=== PATIENT | female | born 1995 | race Caucasian/White ===

== ENCOUNTER 2019-11-19 11:39 | Emergency (ER) | payer OTHER, SELFPAY ==
[2019-11-19 12:05] VITALS: BP 129/83; PULSE 75; RESP 14; TEMP 36.6; O2SAT 100
--- NOTE | 2019-11-19 12:44 | ED.GENADULT ---
HPI - General Adult General Chief complaint: Extremity Injury, Upper Stated complaint: pain in shoulders/pain on left side Time Seen by Provider: 11/19/19 12:44 Source: patient and RN notes reviewed Mode of arrival: ambulatory Limitations: no limitations History of Present Illness HPI narrative: This is a 24 years old female presented office for evaluation of bilateral shoulder and arm pain for 6 months. Symptoms began with left shoulder off-and-on for 6 months and getting worse for the past 2 weeks. Left shoulder is more painful than right shoulder. Left shoulder with constant pain with Intermittent shooting pain to her hands and fingers. She is right-hand dominant. Denies injury or trauma to her neck or her shoulders. She admits to heavy lifting at work at times up to like 30 pounds.She does not have a doctor. Related Data Allergies Allergy/AdvReac Type Severity Reaction Status Date / Time adhesive tape Allergy Intermediate SKIN DIES Verified 11/19/19 12:13 Review of Systems Review of Systems: Narrative: CONSTITUTIONAL: Denies fever, feeling ill, weight loose or night sweat EYES: Denies visual changes ENT: Denies congestion CARDIOVASCULAR: Denies chest pain RESPIRATORY: Denies cough GASTROINTESTINAL: Denies abdominal pain, nausea, vomiting GENITOURINARY: Denies urinary symptoms or discharge SKIN: Denies rash MUSCULOSKELETAL: Reports bilateral shoulder pain NEUROLOGIC: Denies numbness, or focal weakness. PMFSH Past Medical History Medical History (Updated 11/19/19 @ 13:03 by FRANCISCO Bonilla) Anxiety and depression Bipolar 1 disorder Surgical History Surgical History (Updated 11/19/19 @ 12:47 by FRANCISCO Bonilla) History of appendectomy Hx of tonsillectomy Social History Social History (Updated 11/19/19 @ 13:09 by FRANCISCO Bonilla) Smoking status: Never smoker Comments At time of signature, I agree with nursing past medical, surgical, social and family history. There is no relevant family history pertinent to the presenting complaint. Exam Narrative: Exam Narrative: GENERAL: This is a well-nourished, well-developed patient, in no apparent distress. NECK: Neck supple, non-tender without lymphadenopathy, masses or thyromegaly. Negative Spurling test CARDIOVASCULAR: Regular rate and rhythm without murmurs, gallops, or rubs. RESPIRATORY: Clear to auscultation. Breath sounds equal bilaterally. No wheezes, rales, or rhonchi. SKIN: warm, intact with no suspicious lesions or rash, good texture and turgor. NEURO: awake, alert, and oriented to person, place and time. There were no obvious focal neurologic abnormalities. Steady gait EXTREMITIES:The L shoulder is without obvious asymmetry or deformity when comparing to R shoulder. No surface trauma, ecchymosis, crepitus. No bony deformity of the humerus head. No erythema, warmth, swelling to palpate. Nontender to palpations of the bicipital groove or soft tissue. Nontender to palpation of of the muscles of the sternocleidomastoid, pectoris, biceps/triceps, deltoid, trapezius, rhomboid, latissimus dorsi is, or rotator cuff. Negative empty can and arm drop test. No axillary tenderness or lymphadenopathy. Normal sensation over the deltoid and ability to flex the arm at the elbow indicated distal motor is a normal vascular status is intact. Cap refills brisk [place] Coma Scale Eye Opening: Spontaneous 4 [place] Coma Scale Motor: Obeys Commands 6 [place] Coma Scale Verbal: Oriented 5 Course Vital Signs Vital signs: Vital Signs Temperature 97.9 F 11/19/19 12:05 Pulse Rate 75 11/19/19 12:05 Respiratory Rate 14 11/19/19 12:05 Blood Pressure 129/83 11/19/19 12:05 Pulse Oximetry 100 11/19/19 12:05 Temperature 97.9 F 11/19/19 12:05 Pulse Rate 75 11/19/19 12:05 Respiratory Rate 14 11/19/19 12:05 Blood Pressure 129/83 11/19/19 12:05 Pulse Oximetry 100 11/19/19 12:05 Medical Decision Making [facility] Narrative Medical
== END 2019-11-19 13:07 | disposition home or self-care (01) ==
PROVIDERS: Emergency Provider Nurse Practitioner
DX: M25.512 Pain in left shoulder (principal); M25.511 Pain in right shoulder
CPT/HCPCS: 99213; G0463

== ENCOUNTER 2021-04-18 09:35 | Emergency (ER) | payer OTHER, SELFPAY ==
[2021-04-18 09:42] VITALS: BP 124/75; PULSE 85; RESP 14; TEMP 37.2; O2SAT 99
--- NOTE | 2021-04-18 10:29 | ED.SKABFB ---
HPI - Skin/Abscess/Foreign Bdy General Chief complaint: Skin/Abscess/Foreign Body Stated complaint: bumps all over body Time Seen by Provider: 04/18/21 10:30 Source: patient, RN notes reviewed and old records reviewed Mode of arrival: ambulatory Limitations: no limitations History of Present Illness HPI narrative: 26 year old female who presents to [facility] care with complaints of rash red blotchy areas which are itchy that initially started on her feet and ankle. Patient states that her rash has been spreading for the past 24 hours with present treatment of Benadryl and Benadryl cream not helping alleviate the itching or spreading of rash. Patient states that she has not been in the [place] or working on her yard, denies anyone else in household having rash, denies any new medications, foods, soaps, detergents or lotions complaint: rash Onset (ago): day(s) (since Monday 5 days with increase in past 24 hours) Tetanus up to date: yes Location: generalized Quality: pruritic Context: none Associated symptoms: denies other symptoms Treatments prior to arrival: Benadryl and other (Benadryl ointment or cream) Related Data Home Medications Medication Instructions Recorded Confirmed sertraline [Zoloft] 50 mg PO DAILY 04/18/21 04/18/21 Allergies Allergy/AdvReac Type Severity Reaction Status Date / Time adhesive tape Allergy Intermediate SKIN DIES Verified 04/18/21 10:17 Review of Systems Review of Systems: Narrative: CONSTITUTIONAL: Denies fever, chills, or sweats. EYES: Denies visual changes, redness, or discharge. ENT: Denies rhinorrhea, congestion, sore throat, or otalgia. CARDIOVASCULAR: Denies chest pain, palpitations, or edema. RESPIRATORY: Denies cough or dyspnea. GASTROINTESTINAL: Denies abdominal pain, nausea, vomiting, or diarrhea. GENITOURINARY: Denies dysuria or hematuria. SKIN: scattered rash noted to feet, legs arms neck and lower back which is pruritic MUSCULOSKELETAL: Denies back pain, joint pain, or myalgia. NEUROLOGIC: Denies headache, numbness, or weakness. PSYCHIATRIC: Positive history of anxiety or depression. All systems reviewed & are unremarkable except as noted in HPI and below PMFSH Past Medical History Medical History Anxiety and depression Bipolar 1 disorder Surgical History Surgical History History of appendectomy Hx of tonsillectomy Family History Family History (Updated 04/18/21 @ 15:58 by Yumiko Sharp NP) Father Hypertension Grandparent Diabetes mellitus Heart disease Social History Social History (Updated 04/18/21 @ 15:58 by Yumiko Sharp NP) Smoking status: Never smoker Alcohol intake: current Alcohol use details: social Substance use: current Substance use type: marijuana Living arrangements: with family Gender identity (if verbalized by the patient): Female Comments At time of signature, agree with nursing past medical, surgical, social and family history. There is no relevant family history pertinent to the presenting complaint Exam Narrative: Exam Narrative: GENERAL: Well-appearing, well-nourished, and in no acute distress. HEAD: Normocephalic, atraumatic. EYES: PERRLA and EOMI. ENT: Nares clear, no rhinorrhea or epistaxis. Mucous membranes moist.TM's normal with good light reflex, throat pink with no swelling or redness uvula midline, no tonsils present, denies any dysphagia NECK: Supple.no lymphadenopathy CHEST: Clear to auscultation. No respiratory distress.SAO2 99% on room air denies any dyspnea HEART: Regular rate and rhythm. No murmur heard. Normal peripheral pulses. ABDOMEN: Soft, nontender, nondistended, normal active bowel sounds. EXTREMITIES: Normal range of motion. No edema. SKIN: Warm, dry, scattered papular rash noted on feet, ankles, upper and lower leg, arms neck and lower back with is pruritic, no linear formation n
== END 2021-04-18 10:52 | disposition home or self-care (01) ==
PROVIDERS: Emergency Provider Registered Nurse; PCP Internal Medicine
DX: L25.9 Unspecified contact dermatitis, unspecified cause (principal); F41.9 Anxiety disorder, unspecified; F32.9 Major depressive disorder, single episode, unspecified
CPT/HCPCS: 99213; G0463

== ENCOUNTER 2021-04-20 10:23 | Emergency (ER) | payer OTHER, SELFPAY ==
[2021-04-20 10:29] VITALS: BP 144/80; PULSE 85; RESP 18; TEMP 36.6; O2SAT 99
[2021-04-20 10:39] VITALS: BP 144/80; PULSE 85; RESP 18; TEMP 36.6; O2SAT 99
--- NOTE | 2021-04-20 10:57 | ED.SKABFB ---
HPI - Skin/Abscess/Foreign Bdy General Chief complaint: Skin/Abscess/Foreign Body Stated complaint: Rash on body Time Seen by Provider: 04/20/21 10:33 Source: patient, RN notes reviewed and old records reviewed Mode of arrival: ambulatory Limitations: no limitations History of Present Illness HPI narrative: 26 year old female who presents to [facility] care with continued rash generalized to body. Patient was seen on the 4th and treated for contact dermatitis and has been taking steroid, Pepcid and using triamcinolone cream to rash. Patient states that areas have improved some but she has noted some new areas on her right lower leg and thigh. Patient denies increase pruritus at night. Rash on forearms has improved in amount but now some lesions are circular with inner clearing typical of ringworm. Child also has rash now that is similar to her rash upon first presentation. MD complaint: rash Tetanus up to date: yes Related Data Home Medications Medication Instructions Recorded Confirmed sertraline [Zoloft] 50 mg PO DAILY 04/18/21 04/20/21 Allergies Allergy/AdvReac Type Severity Reaction Status Date / Time adhesive tape Allergy Intermediate SKIN DIES Verified 04/20/21 10:38 Review of Systems Review of Systems: Narrative: CONSTITUTIONAL: Denies fever, chills, or sweats. EYES: Denies visual changes, redness, or discharge. ENT: Denies rhinorrhea, congestion, sore throat, or otalgia. CARDIOVASCULAR: Denies chest pain, palpitations, or edema. RESPIRATORY: Denies cough or dyspnea. GASTROINTESTINAL: Denies abdominal pain, nausea, vomiting, or diarrhea. GENITOURINARY: Denies dysuria or hematuria. SKIN: Positive rash and itching generalized with some circular lesions noted. MUSCULOSKELETAL: Denies back pain, joint pain, or myalgia. NEUROLOGIC: Denies headache, numbness, or weakness. PSYCHIATRIC: Positive anxiety or depression. All systems reviewed & are unremarkable except as noted in HPI and below PMFSH Past Medical History Medical History Anxiety and depression Bipolar 1 disorder Surgical History Surgical History History of appendectomy Hx of tonsillectomy Family History Family History (Updated 04/18/21 @ 15:58 by Yumiko Sharp NP) Father Hypertension Grandparent Diabetes mellitus Heart disease Social History Social History (Updated 04/18/21 @ 15:58 by Yumiko Sharp NP) Smoking status: Never smoker Alcohol intake: current Alcohol use details: social Substance use: current Substance use type: marijuana Gender identity (if verbalized by the patient): Female Comments at time of signature agree with nursing documentation of past medical, surgical , social and family history, There is no relevant past family history pertinent to presenting complaint Exam Narrative: Exam Narrative: GENERAL: Well-appearing, well-nourished, and in no acute distress. HEAD: Normocephalic, atraumatic. EYES: PERRLA and EOMI. ENT: Nares clear, no rhinorrhea or epistaxis. Mucous membranes moist. NECK: Supple. no lymphadenopathy CHEST: Clear to auscultation. No respiratory distress.SAO2 99% on room air HEART: Regular rate and rhythm. No murmur heard. Normal peripheral pulses. ABDOMEN: Soft, nontender, nondistended, normal active bowel sounds. EXTREMITIES: Normal range of motion. No edema. SKIN: Warm, dry, positive for increase rash to upper leg which is macular papular scattered but rash on forearms noted now to be circular with inner clearing typical of ringworm. which is pruritic. NEURO: No focal deficits. Alert and oriented x3. Course Vital Signs Vital signs: Vital Signs Temperature 36.6 C 04/20/21 10:29 Pulse Rate 85 04/20/21 10:29 Respiratory Rate 18 04/20/21 10:29 Blood Pressure 144/80 H 04/20/21 10:29 Pulse Oximetry 99 04/20/21 10:29 Temperature 36.6 C 04/20/21 10:39 Pu
== END 2021-04-20 11:07 | disposition home or self-care (01) ==
PROVIDERS: Emergency Provider Registered Nurse
DX: B35.9 Dermatophytosis, unspecified (principal); F41.9 Anxiety disorder, unspecified; F32.9 Major depressive disorder, single episode, unspecified
CPT/HCPCS: 99213; G0463

== ENCOUNTER 2021-10-18 19:28 | Emergency (ER) | payer OTHER, SELFPAY ==
--- NOTE | ~2021-10-18 | XR_ITS ---
EXAMINATION: XR ankle LT min 3V EXAM DATE: 10/18/2021 19:46 INDICATION: Possible Inversion Injury When Squatting,Lateral Pain . Initial encounter. TECHNIQUE: Left ankle frontal, lateral and oblique projections obtained and reviewed. There is no pr ior study for comparison. FINDINGS: The left ankle mortise appears intact. There are no acute fractures or dislocations ident ified. There is no subcutaneous gas. The soft tissue is unremarkable. There are no radiopaque for eign bodies. IMPRESSION: No acute osseous findings. Reviewed, dictated and finalized at location A. E IMPRESSION: No acute osseous findings.
[2021-10-18 19:34] VITALS: BP 139/82; PULSE 101; RESP 16; TEMP 37.2; O2SAT 98
--- NOTE | 2021-10-18 19:48 | ED.LOWEXIN ---
HPI - Extremity Injury (Lower) General Chief Complaint: Extremity Injury, Lower Stated Complaint: left ankle pain Time Seen by Provider: 10/18/21 19:48 Source: patient History of Present Illness HPI Narrative: PATIENT PRESENTS WITH LEFT ANKLE PAIN. PATIENT ROLLED ANKLE A FEW DAYS AGO. NO DEFORMITY NO BRUISING NO OPEN AREAS. complaint: ankle injury Related Data Home Medications Medication Instructions Recorded Confirmed No Home Medications 10/18/21 10/18/21 Allergies Allergy/AdvReac Type Severity Reaction Status Date / Time adhesive tape Allergy Intermediate SKIN DIES Verified 10/18/21 19:40 Review of Systems Review of Systems: CONSTITUTIONAL: Denies fever, chills, or sweats. EYES: Denies visual changes, redness, or discharge. ENT: Denies rhinorrhea, congestion, sore throat, or otalgia. CARDIOVASCULAR: Denies chest pain, palpitations, or edema. RESPIRATORY: Denies cough or dyspnea. GASTROINTESTINAL: Denies abdominal pain, nausea, vomiting, or diarrhea. GENITOURINARY: Denies dysuria or hematuria. SKIN: Denies rash or itching. MUSCULOSKELETAL: Denies back pain, joint pain, or myalgia. NEUROLOGIC: Denies headache, numbness, or weakness. PSYCHIATRIC: Denies anxiety or depression. Allergic/Immunologic: Comments: At time of signature, agree with nursing past medical, surgical, social and family history. There is no relevant family history pertinent to the presenting complaint PMFSH Past Medical History Medical History Anxiety and depression Bipolar 1 disorder Surgical History Surgical History History of appendectomy Hx of tonsillectomy Family History Family History (Updated 04/18/21 @ 15:58 by Yumiko Sharp NP) Father Hypertension Grandparent Diabetes mellitus Heart disease Social History Social History (Updated 04/18/21 @ 15:58 by Yumiko Sharp NP) Smoking status: Never smoker Alcohol intake: current Alcohol use details: social Substance use: current Substance use type: marijuana Gender identity (if verbalized by the patient): Female Exam Narrative: GENERAL: Well-appearing, well-nourished, and in no acute distress. HEAD: Normocephalic, atraumatic. EYES: PERRLA and EOMI. ENT: Nares clear, no rhinorrhea or epistaxis. Mucous membranes moist. NECK: Supple. CHEST: Clear to auscultation. No respiratory distress. HEART: Regular rate and rhythm. No murmur heard. Normal peripheral pulses. ABDOMEN: Soft, nontender, nondistended, normal active bowel sounds. EXTREMITIES: Normal range of motion. No edema. ANKLE EXAM SKIN INTACT. NORMAL DP PULSE, NORMAL CAP REFILL. NORMAL SENSATION.PAIN TO LATERAL SIDE OF ANKLE SKIN: Warm, dry, no rash. NEURO: No focal deficits. Alert and oriented x3. [place] Coma Scale Eye Opening: Spontaneous 4 [place] Coma Scale Motor: Obeys Commands 6 [place] Coma Scale Verbal: Oriented 5 [place] Coma Scale Total 15 Course Course Level of Care: Express Care Visit Vital Signs Vital signs: Vital Signs Temperature 37.2 C 10/18/21 19:34 Pulse Rate 101 H 10/18/21 19:34 Respiratory Rate 16 10/18/21 19:34 Blood Pressure 139/82 10/18/21 19:34 Pulse Oximetry 98 10/18/21 19:34 Temperature 37.2 C 10/18/21 19:34 Pulse Rate 101 H 10/18/21 19:34 Respiratory Rate 16 10/18/21 19:34 Blood Pressure 139/82 10/18/21 19:34 Pulse Oximetry 98 10/18/21 19:34 Addressed elevated BP today. Today's blood pressure higher than recommended range. Discussed importance of follow -up with PCP and possible nipple maker effects/cardiovascular events related to HTN. Currently patient denies headache, dizziness, vision changes, CP or shortness of breath. DISCUSSED WITH PATIENT, X-RAY FINDINGS AND THAT X-RAYS WERE NEGATIVE FOR FRACTURE OR DISLOCATIONS. X-RAYS CANNOT RULE OUT TENDON, LIGAMENT, OR SOFT TISSUE STRUCTURE INJURIES AND IF SYMP
== END 2021-10-18 20:06 | disposition home or self-care (01) ==
PROVIDERS: Emergency Provider Nurse Practitioner Family; PCP Internal Medicine
DX: S93.402A Sprain of unspecified ligament of left ankle, initial encounter (principal); S96.912A Strain of unspecified muscle and tendon at ankle and foot level, left foot, initial encounter; X50.9XXA Other and unspecified overexertion or strenuous movements or postures, initial encounter
CPT/HCPCS: 73610; 99213; G0463

== ENCOUNTER 2023-11-08 09:54 | Emergency (ER) | payer OTHER, SELFPAY ==
--- NOTE | ~2023-11-08 | XR_ITS ---
EXAMINATION: XR chest 2V 11/08/2023 10:24 INDICATION: Wheezing and cough PROCEDURE: 2 view chest COMPARISON: No prior studies for comparison. FINDINGS: The lungs are clear. The cardiomediastinal silhouette is within normal limits. There are no pleural effusions. There is no pneumothorax suspected. IMPRESSION: 1: NO ACUTE CARDIOPULMONARY DISEASE. Reviewed, dictated and finalized at location B. R [employer]
[2023-11-08 10:00] VITALS: BP 121/73; PULSE 89; RESP 16; TEMP 36.9; O2SAT 100
--- NOTE | 2023-11-08 10:05 | ED.URI ---
HPI - URI/Sore Throat General Chief Complaint: Upper Respiratory Infection Stated Complaint: Wheezing in chest Time Seen by Provider: 11/08/23 10:05 Source: patient Mode of arrival: ambulatory Limitations: no limitations History of Present Illness HPI Narrative: 28 yo F presents with c/o cough, chest congestion, bodyaches and fatigue for 5 days. Has felt feverish but no fever. Reports SOB with exertion today. Concerned for pneumonia. All systems reviewed and negative except as noted above. Related Data Home Medications Medication Instructions Recorded Confirmed clonidine HCl 0.1 mg 0.1 mg PO Q12H 11/08/23 11/08/23 tablet,extended release,12 hr hydroxyzine pamoate 50 mg capsule 50 mg PO QHS 11/08/23 11/08/23 prazosin 1 mg capsule 1 mg PO QHS 11/08/23 11/08/23 Allergies Allergy/AdvReac Type Severity Reaction Status Date / Time adhesive tape Allergy Intermediate SKIN DIES Verified 11/08/23 10:17 Review of Systems Review of Systems: CONSTITUTIONAL: Denies fever, chills, or sweats. Reports fatigue. EYES: Denies visual changes, redness, or discharge. ENT: Denies rhinorrhea, congestion, sore throat, or otalgia. CARDIOVASCULAR: Denies chest pain, palpitations, or edema. RESPIRATORY: Reports cough and dyspnea with exertion. GASTROINTESTINAL: Denies abdominal pain, nausea, vomiting, or diarrhea. GENITOURINARY: Denies dysuria or hematuria. SKIN: Denies rash or itching. MUSCULOSKELETAL: Denies back pain, joint pain. Reports myalgia. NEUROLOGIC: Denies headache, numbness, or weakness. PSYCHIATRIC: Denies anxiety or depression. All other systems reviewed are negative, except as documented in HPI. [facility] Past Medical History Medical History Anxiety and depression Bipolar 1 disorder Surgical History Surgical History History of appendectomy Hx of tonsillectomy Family History Family History (Updated 04/18/21 @ 15:58 by Yumiko Sharp NP) Father Hypertension Grandparent Diabetes mellitus Heart disease Social History Social History (Updated 04/18/21 @ 15:58 by Yumiko Sharp NP) Smoking status: Never smoker Alcohol intake: current Alcohol use details: social Substance use: current Substance use type: marijuana Living arrangements: with family Gender identity (if verbalized by the patient): Female Comments At time of signature, agree with nursing past medical, surgical, social and family history. There is no relevant family history pertinent to the presenting complaint. Exam Narrative: GENERAL: This is a well-nourished, well-developed patient, in no apparent distress. HEAD: normocephalic, atraumatic. EYES: PERRL. Sclera clear/white. Vision is grossly intact. EARS: External ears normal, auditory canals clear and without drainage, TMs normal without perforation. Hearing grossly intact. NOSE: External nose normal with no obvious nasal discharge, nares without redness, no rhinorrhea. THROAT: Mucous membranes moist, posterior pharynx clear. NECK: Neck supple, non-tender without lymphadenopathy, masses or thyromegaly. CARDIOVASCULAR: Regular rate and rhythm without murmurs, gallops, or rubs. RESPIRATORY: Mildly coarse lung sounds throughout all lung mantilla. Breath sounds equal bilaterally. No wheezes, rales, or rhonchi. SKIN: warm, Dry, intact with no suspicious lesions or rash, good texture and turgor. NEURO: awake, alert, and oriented to person, place and time. There were no obvious focal neurologic abnormalities. EXTREMITIES: No joint tenderness, effusion, or edema noted. Course Course Level of Care: Express Care Visit Vital Signs Vital signs: Vital Signs Temperature 36.9 C 11/08/23 10:00 Pulse Rate 89 11/08/23 10:00 Respiratory Rate 16 11/08/23 10:00 Blood Pressure 121/73 11/08/23 10:00 Pulse Oximetry 100 11/08/23 10:00 Oxygen [place]
== END 2023-11-08 10:40 | disposition home or self-care (01) ==
PROVIDERS: Emergency Provider Nurse Practitioner Family
DX: J20.9 Acute bronchitis, unspecified (principal); F12.90 Cannabis use, unspecified, uncomplicated; F41.9 Anxiety disorder, unspecified
CPT/HCPCS: 71046; 99213; G0463

== ENCOUNTER 2023-11-23 09:20 | Emergency (ER) | payer OTHER, SELFPAY ==
--- NOTE | ~2023-11-23 | XR_ITS ---
EXAMINATION: XR chest 2V DATE: 11/23/2023 10:00 INDICATION: Shortness of breath and cough TECHNIQUE: Frontal and lateral views of the chest are obtained COMPARISON: 11/08/2023 FINDINGS: The lungs are free of acute opacities. No pleural effusion or pneumothorax. The cardiomedia stinal silhouette is normal. There is mild thoracic spondylosis. IMPRESSION: 1. No acute cardiopulmonary abnormality. Reviewed, dictated and finalized at location [facility] [employer]
[2023-11-23 09:28] VITALS: BP 134/58; PULSE 99; RESP 20; TEMP 36.9; O2SAT 98
--- NOTE | 2023-11-23 10:04 | ED.URI ---
HPI - URI/Sore Throat General Chief Complaint: Upper Respiratory Infection Stated Complaint: Shortness of Breath/Chest Congestion Time Seen by Provider: 11/23/23 09:47 Source: patient, RN notes reviewed and old records reviewed Mode of arrival: ambulatory Limitations: no limitations History of Present Illness HPI Narrative: Patient presents today with a 2+ week history of productive cough, shortness of breath with exertion, ?rattling in with sling? in the chest, especially when she lays down to go to bed. Denies fever. She has tried Mucinex, albuterol inhaler, humidifier. She was seen 2 weeks ago for same symptoms here at [facility] and was diagnosed with a viral illness after a chest x-ray. She was given an inhaler and steroids. Reports some improvement after the steroids but still continues to be very short of breath. Told director of radiology that she does continue to go to the gym and workout. Related Data Home Medications Medication Instructions Recorded Confirmed clonidine HCl 0.1 mg 0.1 mg PO Q12H 11/08/23 11/23/23 tablet,extended release,12 hr hydroxyzine pamoate 50 mg capsule 50 mg PO QHS 11/08/23 11/23/23 prazosin 1 mg capsule 1 mg PO QHS 11/08/23 11/23/23 Allergies Allergy/AdvReac Type Severity Reaction Status Date / Time adhesive tape Allergy Intermediate SKIN DIES Verified 11/08/23 10:17 Review of Systems Review of Systems: CONSTITUTIONAL: Denies body aches, fever, chills, or sweats. EYES: Denies visual changes, redness, or discharge. ENT: Denies rhinorrhea, congestion, sore throat, or otalgia. CARDIOVASCULAR: Denies chest pain, palpitations, or edema. RESPIRATORY: + cough, shortness of breath GASTROINTESTINAL: Denies abdominal pain, nausea, vomiting, or diarrhea. GENITOURINARY: Denies dysuria or hematuria. SKIN: Denies rash, itching, or wounds. MUSCULOSKELETAL: Denies back pain, joint pain, or myalgia. NEUROLOGIC: Denies headache, numbness, tingling, or weakness. PSYCH: Denies depression or anxiety. [facility] Past Medical History Medical History Anxiety and depression Bipolar 1 disorder Surgical History Surgical History History of appendectomy Hx of tonsillectomy Family History Family History Father Hypertension Grandparent Diabetes mellitus Heart disease Social History Social History Smoking status: Never smoker Alcohol intake: current Alcohol use details: social Substance use: current Substance use type: marijuana Living arrangements: with family Gender identity (if verbalized by the patient): Female Comments At time of signature, I have reviewed and agree with nursing past medical, surgical, social and family history unless otherwise noted. Please see nursing chart for further information. There is no relevant family history pertinent to the presenting complaint Exam Narrative: GENERAL: Well-appearing, well-nourished. HEAD: Normocephalic, atraumatic. EYES: EOMI. No redness or drainage. Conjunctivae normal. ENT: Mucous membranes pink and moist. Nares clear. No rhinorrhea. TMs normal bilaterally. Throat normal. Uvula midline. NECK: Normal AROM. Supple. No lymphadenopathy. CHEST: Clear to auscultation.+ tachypnea after walking back from xray room. HEART: Regular rate and rhythm. No murmur appreciated. EXTREMITIES: Normal range of motion. No edema. SKIN: Warm, dry, no rash. Capillary refill normal. Normal skin turgor. NEURO: No focal deficits. Alert and oriented x3. Gait steady. PSYCH: Normal affect. No signs of depression or anxiety. Course Course Level of Care: Express Care Visit Vital Signs Vital signs: Vital Signs Temperature 98.5 F 11/23/23 09:28 Pulse Rate 99 11/23/23 09:28 Respiratory
== END 2023-11-23 10:29 | disposition home or self-care (01) ==
PROVIDERS: Emergency Provider Nurse Practitioner; PCP Internal Medicine
DX: R06.02 Shortness of breath (principal); Z79.899 Other long term (current) drug therapy
CPT/HCPCS: 71046; 99213; G0463

== ENCOUNTER 2023-11-24 14:56 | Emergency (ER) | payer OTHER, SELFPAY ==
[2023-11-24 15:06] VITALS: BP 120/72; PULSE 84; RESP 18; TEMP 37.4; O2SAT 99
--- NOTE | 2023-11-24 15:44 | ED.EAR ---
HPI - Ear Problem General Chief complaint: Ear Stated complaint: Ear Pain Time Seen by Provider: 11/24/23 15:44 Source: patient Mode of arrival: ambulatory Limitations: no limitations History of Present Illness HPI Narrative: 28-year-old female presented for complaint of left ear pain and decreased hearing. Onset yesterday. Denies tinnitus, dizziness, nausea, vomiting, fevers or chills. Not taking anything for symptoms. MD Complaint: ear pain Related Data Home Medications Medication Instructions Recorded Confirmed clonidine HCl 0.1 mg 0.1 mg PO Q12H 11/08/23 11/23/23 tablet,extended release,12 hr hydroxyzine pamoate 50 mg capsule 50 mg PO QHS 11/08/23 11/23/23 prazosin 1 mg capsule 1 mg PO QHS 11/08/23 11/23/23 Allergies Allergy/AdvReac Type Severity Reaction Status Date / Time adhesive tape Allergy Intermediate SKIN DIES Verified 11/08/23 10:17 Review of Systems Review of Systems: CONSTITUTIONAL: Denies malaise, chills, or fever. EYES: Denies visual changes, redness, or discharge. ENT: Denies rhinorrhea, congestion, sinus pain, and sore throat. Reports ear pain CARDIOVASCULAR: Denies chest pain, palpitations, or edema. RESPIRATORY: Denies cough or dyspnea. GASTROINTESTINAL: Denies abdominal pain, nausea, vomiting, diarrhea NEUROLOGIC: Denies headache. All systems reviewed & are unremarkable except as noted in HPI and below PMFSH Past Medical History Medical History Anxiety and depression Bipolar 1 disorder Surgical History Surgical History History of appendectomy Hx of tonsillectomy Family History Family History Father Hypertension Grandparent Diabetes mellitus Heart disease Social History Social History Smoking status: Never smoker Alcohol intake: current Alcohol use details: social Substance use: current Substance use type: marijuana Living arrangements: with family Gender identity (if verbalized by the patient): Female Comments At time of signature, agree with nursing past medical, surgical, social and family history. There is no relevant family history pertinent to the presenting complaint Exam Narrative: GENERAL: Well-appearing EYES: PERRLA, conjunctivae clear ENT: Nares clear. Mucous membranes moist. Right TM pearly mendoza with dull light reflex; left TM erythematous, bulging and intact, canal not erythematous, No drainage, no tragal tenderness. Oropharynx not erythematous without lesions. CHEST: Clear to auscultation, breath sounds equal. HEART: Regular rate and rhythm. No murmur heard. SKIN: Warm, dry, no rash. NEURO: Alert and oriented x3. PSYCH: Normal mood and affect Course Course Emergency Course: Patient is aware of diagnosis, understands and agrees to treatment plan. Anticipatory guidance given. Patient agrees to follow-up as directed and is aware of reasons to seek care at the emergency department. Portions of this record may have been created with voice recognition software Level of Care: Express Care Visit Vital Signs Vital signs: Vital Signs Temperature 99.4 F 11/24/23 15:06 Pulse Rate 84 11/24/23 15:06 Respiratory Rate 18 11/24/23 15:06 Blood Pressure 120/72 11/24/23 15:06 Pulse Oximetry 99 11/24/23 15:06 Oxygen Delivery Room Air 11/24/23 15:06 Temperature 99.4 F 11/24/23 15:06 Pulse Rate 84 11/24/23 15:06 Respiratory Rate 18 11/24/23 15:06 Blood Pressure 120/72 11/24/23 15:06 Pulse Oximetry 99 11/24/23 15:06 Oxygen Delivery Room Air 11/24/23 15:06 Reviewed Medical Decision Making MDM Narrative Medical decision making narrative: discussed physical exam findings consistent with left AOM. Advised supportive measures and signs/symptoms to go to the ER. Patient is a
== END 2023-11-24 15:57 | disposition home or self-care (01) ==
PROVIDERS: Emergency Provider Nurse Practitioner Family; PCP Internal Medicine
DX: H66.002 Acute suppurative otitis media without spontaneous rupture of ear drum, left ear (principal); F41.9 Anxiety disorder, unspecified
CPT/HCPCS: 99213; G0463